=== PATIENT | male | born 1980 | race Two or more races ===

== ENCOUNTER 2023-01-12 10:16 | Emergency (ER) | payer MEDICAID, OTHER ==
[~2023-01-12] VITALS: Ht 188 cm; Wt 109.1 kg
[2023-01-12 11:46] VITALS: BP 139/85; PULSE 92; RESP 18; TEMP 97.2; O2SAT 96
[2023-01-12] MEDS ORDERED: KETOROLAC TROMETH 30 MG/ML 1ML VIAL IV ONE (13:00)
== END 2023-01-12 13:46 | disposition home or self-care (01) ==
LOC: ER 10:16
DX: S62.314A Displaced fracture of base of fourth metacarpal bone, right hand, initial encounter for closed fracture (principal); X58.XXXA Exposure to other specified factors, initial encounter; Y93.89 Activity, other specified; Y92.89 Other specified places as the place of occurrence of the external cause; Y99.8 Other external cause status
CPT/HCPCS: 29125; 73130; 96374; 99283; J1885